=== PATIENT | male | born 1980 | race Caucasian/White ===

== ENCOUNTER 2016-10-13 12:58 | Emergency (ER) | payer MEDICAID ==
[2016-10-13 13:18] VITALS: BP 118/62
--- NOTE | 2016-10-13 13:28 | UC ---
Headache HPI - HPI Summary HPI Summary: Headache, congestion, cough, chills for three days. Headache began mid day and has been intermittent since. It resolves during the day and gets worse at night. no neck stiffness. - History Of Current Complaint Chief Complaint: Robert Stated Complaint: SINUS,COUGH,HEADACHE Time Seen by Provider: 10/13/16 13:16 Hx Obtained From: Patient Onset/Duration: Lasting Days Initially Headache Was: Moderate Currently Pain Is: Moderate Timing: Intermittent, Lasting:, Hours Character: Pressure - directly over the frontal sinus. Location of Headache: Frontal Aggravating Factor: Bright Lights Allevating Factors: Rest Associated Signs And Symptoms: Positive: Sinus Pressure, Fever - subjective fever.. Negative: Neck Pain, Neck Stiffness, Decreased LOC, Visual Changes - Allergies/Home Medications Allergies/Adverse Reactions: Allergies Allergy/AdvReac Type Severity Reaction Status Date / Time No Known Allergies Allergy Verified 10/13/16 13:19 PMH/Surg Hx/FS Hx/Imm Hx Endocrine History Of: Denies: Diabetes, Thyroid Disease Cardiovascular History Of: Denies: Cardiac Disorders, Hypertension Respiratory History Of: Reports: Asthma Denies: COPD GI/ History Of: Denies: Ulcer - Surgical History Surgical History: Yes Surgery Procedure, Year, and Place: appy - Family History Known Family History: Positive: Diabetes, Renal Disease, Other - brain aneurysm. Negative: Cardiac Disease - Social History Alcohol Use: None Substance Use Type: None Smoking Status (MU): Heavy Every Day Tobacco Smoker Type: Cigarettes Amount Used/How Often: 1/2 ppd Length of Time of Smoking/Using Tobacco: started age 17 Review of Systems All Other Systems Reviewed And Are Negative: Yes Physical Exam Triage Information Reviewed: Yes Appearance: Well-Appearing, Pain Distress - mild appearing pain with lights in the room. non toxic and pleasant. Vital Signs: Initial Vital Signs Temp 100.0 F 10/13/16 13:15 Pulse 92 10/13/16 13:15 Resp 14 10/13/16 13:15 BP 118/62 10/13/16 13:15 Pulse Ox 98 10/13/16 13:15 Vital Signs Reviewed: Yes Eye Exam: Normal Eyes: Positive: Conjunctiva Clear. Negative: Conjunctiva Inflamed ENT: Positive: Normal ENT inspection, Hearing grossly normal, Pharynx normal, Nasal congestion, TMs normal, Other: - hoarse and nasal voice. there is exuisite tenderness over the frontal sinus.. Negative: Pharyngeal erythema, Nasal drainage, TM bulging, TM dull, TM red, Tonsillar swelling, Tonsillar exudate, Trismus, Muffled/hoarse voice Neck exam: Normal Neck: Positive: Supple, Nontender, No Lymphadenopathy. Negative: Nuchal Rigidity - Neg kernig and brudzinski. Respiratory: Positive: Lungs clear, Normal breath sounds, No respiratory distress, No accessory muscle use. Negative: Respiratory distress, Decreased breath sounds, Accessory muscle use, Crackles, Rhonchi, Stridor Cardiovascular Exam: Normal Cardiovascular: Positive: RRR, No Murmur, Pulses Normal Abdominal Exam: Normal Abdomen Description: Positive: Nontender, No Organomegaly, Soft Musculoskeletal: Positive: ROM Intact, No Edema Neurological Exam: Normal Neurological: Positive: Alert, Muscle Tone Normal. Negative: Fatigued, Lethargic, Unresponsive Psychological Exam: Normal Skin Exam: Normal Skin: Negative: rashes Headache Course/Dx - Course Course Of Treatment: sinus tendnerness, congestion, cough, chills with absent meningismus. I do not believe this is aneurysm. This is more c/w meningitis. - Differential Dx/Diagnosis Differential Diagnosis/HQI/PQRI: CVA, TIA, Epidural Hematoma, Subdural Hematoma , Meningitis, Migraine, Sinus Headache, Subarachnoid Hemorrhage, Temporal Arteritis, Tension Headache, Viral Syndrome Provider Diagnoses: sinusitis- frontal. Discharge - Discharge Plan Condition: Stable Disposition: HOME Prescriptions: Amoxicillin CAP* [Amoxicillin 500 MG CAP*] 500 mg PO TID #30 cap Patient Education Materials: Sinusitis (ED)
== END 2016-10-13 13:44 | disposition home or self-care (01) ==
LOC: UCCORT 12:58
DX: J32.1 Chronic frontal sinusitis (principal); J45.909 Unspecified asthma, uncomplicated; F17.210 Nicotine dependence, cigarettes, uncomplicated
CPT/HCPCS: 99212; G0463